=== PATIENT | female | born 1990 | race African-American/Black ===

== ENCOUNTER 2020-11-06 09:08 | Emergency (ER) | payer OTHER ==
[~2020-11-06] VITALS: Ht 175.3 cm; Wt 61.2 kg
[2020-11-06 09:15] VITALS: BP 120/69
[2020-11-06] MEDS ORDERED: VALACYCLOVIR HCL 500 MG TABLET PO ONE ×2 (10:00)
[2020-11-06] MEDS ORDERED: VALACYCLOVIR HCL 500 MG TABLET ONE ×2 (10:07→10:08)
[2020-11-06] MEDS ORDERED: VALA10002 PO (10:10)
== END 2020-11-06 10:22 | disposition home or self-care (01) ==
LOC: ER 09:08
DX: S90.32XA Contusion of left foot, initial encounter (principal); B00.1 Herpesviral vesicular dermatitis; W22.8XXA Striking against or struck by other objects, initial encounter; Y93.89 Activity, other specified; Y92.89 Other specified places as the place of occurrence of the external cause; Y99.8 Other external cause status
CPT/HCPCS: 73630-TC